=== PATIENT | male | born 1960 | race Caucasian/White ===

== ENCOUNTER → 2020-06-24 11:43 | Outpatient (BNVA) | payer MEDICARE, SELFPAY | PROVIDERS: Visit Provider Nurse Practitioner Family | DX: M54.5 Low back pain (principal); G89.29 Other chronic pain; E11.9 Type 2 diabetes mellitus without complications; E78.5 Hyperlipidemia, unspecified; F41.9 Anxiety disorder, unspecified; K21.9 Gastro-esophageal reflux disease without esophagitis; I25.10 Atherosclerotic heart disease of native coronary artery without angina pectoris; G25.81 Restless legs syndrome; M16.0 Bilateral primary osteoarthritis of hip | CPT/HCPCS: 80053; 80061; 83036; 84443; 85025 ==